=== PATIENT | male | born 1940 | race Two or more races ===

== ENCOUNTER 2021-01-05 10:30 | Inpatient (IN) | payer OTHER ==
[~2021-01-05] VITALS: Ht 170.2 cm; Wt 63.5 kg
[2021-01-05] MEDS ORDERED: LOTREL 5-10 MG1 CAP PO (14:02)
[2021-01-05] MEDS ORDERED: PRAVASTATIN SOD10 MG PO (14:03)
[2021-01-05] MEDS ORDERED: PANTOPRAZOLE SO40 M2 PO (14:03)
[2021-01-05] MEDS ORDERED: VITAMIN PO (14:03)
[2021-01-05] MEDS ORDERED: TAMS0.4C PO (14:04)
[2021-01-11] MEDS ORDERED: VITAMIN C1000 MG PO (09:30)
== END 2021-01-14 18:45 | disposition home or self-care (01) | DRG 330 ==
LOC: SURH 01-11 07:31 → O/R 01-11 07:31 → SURH 01-11 10:30
PROVIDERS: ADMIT Colon & Rectal Surgery; ATTEND Colon & Rectal Surgery
PROC: 07BB4ZZ Excision of Mesenteric Lymphatic, Percutaneous Endoscopic Approach (ICD-10-PCS; 2021-01-11)
PROC: 0DTF4ZZ Resection of Right Large Intestine, Percutaneous Endoscopic Approach (ICD-10-PCS; principal; 2021-01-11 14:00)
DX: C18.2 Malignant neoplasm of ascending colon (principal); K92.1 Melena; N40.0 Benign prostatic hyperplasia without lower urinary tract symptoms; D50.0 Iron deficiency anemia secondary to blood loss (chronic); I10 Essential (primary) hypertension; E78.5 Hyperlipidemia, unspecified; Z85.038 Personal history of other malignant neoplasm of large intestine